=== PATIENT | female | born 1975 | race Caucasian/White ===

== ENCOUNTER 2017-12-08 15:35 | Emergency (ER) | payer OTHER ==
[2017-12-08 15:43] VITALS: BMI 29.0
[2017-12-08 15:47] VITALS: RESP 18
--- NOTE | 2017-12-08 16:05 | C.PDOC ---
History Of Present Illness 42 y/o female presents to ED with c/o throat pain, headache and body aches since yesterday. Patient reports throat pain is worse with swallowing and denies fever, chills, cough, nausea, vomiting, recent travel, sick contacts or any other complaints at this time. Time Seen by Provider: 12/08/17 15:49 Chief Complaint (Nursing): Headache History Per: Patient History/Exam Limitations: no limitations Onset/Duration Of Symptoms: Days Current Symptoms Are (Timing): Still Present Past Medical History Reviewed: Historical Data, Nursing Documentation, Vital Signs Vital Signs: Last Vital Signs Temp 97.9 F 12/08/17 17:18 Pulse 83 12/08/17 17:18 Resp 18 12/08/17 17:18 BP 139/88 12/08/17 17:18 Pulse Ox 98 12/08/17 18:07 - Medical History PMH: Gastritis Surgical History: No Surg Hx Family History: States: No Known Family Hx - Social History Hx Alcohol Use: No Hx Substance Use: No Review Of Systems Constitutional: Negative for: Fever, Chills ENT: Positive for: Throat Pain Cardiovascular: Negative for: Chest Pain Respiratory: Negative for: Cough, Shortness of Breath Gastrointestinal: Negative for: Nausea, Vomiting Skin: Negative for: Rash Physical Exam - Physical Exam Appears: Non-toxic, No Acute Distress Skin: Warm, Dry, No Rash Head: Atraumatic, Normacephalic Eye(s): bilateral: Normal Inspection Oral Mucosa: Moist Throat: Erythema, No Exudate Neck: Supple Cardiovascular: Rhythm Regular Respiratory: Normal Breath Sounds, No Rales, No Rhonchi, No Wheezing Gastrointestinal/Abdominal: Soft, No Tenderness, No Guarding, No Rebound Neurological/Psych: Oriented x3, Normal Speech, Normal Cognition ED Course And Treatment O2 Sat by Pulse Oximetry: 98 (RA) Pulse Ox Interpretation: Normal Medical Decision Making Medical Decision Making: pt well appearing on phone in nad. rapid strep neg. advise outpt fu. no hot pototo voice, no unilateral swelling Disposition - Disposition Referrals: [facility] [Outside] [facility] [Outside] Beau Calloway MD [Staff Provider] - Disposition: HOME/ ROUTINE Disposition Time: 06:00 Condition: STABLE Additional Instructions: please see your doctor/clinic. return to er with worsening symptoms or concerns. Prescriptions: Ibuprofen [Motrin Tab] 400 mg PO Q6 PRN #20 tab PRN Reason: Pain, Mild (1-3) Instructions: Viral Pharyngitis, Viral Syndrome (DC) Forms: [employer] (Swiss) - Clinical Impression Clinical Impression: Viral syndrome - Scribe Statement The provider has reviewed the documentation as recorded by the Mendelibnorris Mg All medical record entries made by the Mendelibnorris were at my direction and personally dictated by me. I have reviewed the chart and agree that the record accurately reflects my personal performance of the history, physical exam, medical decision making, and the department course for this patient. I have also personally directed, reviewed, and agree with the discharge instructions and disposition.
[2017-12-08 17:19] VITALS: BP 139/88; PULSE 83; TEMP 97.9
[2017-12-08 18:07] VITALS: O2SAT 98
== END 2017-12-08 17:19 | disposition home or self-care (01) ==
LOC: C.ER 15:35
DX: B34.9 Viral infection, unspecified (principal)
CPT/HCPCS: 87070; 87430; 99283; J8540

== ENCOUNTER 2018-04-22 10:23 | Emergency (ER) | payer OTHER ==
[2018-04-22 10:23] VITALS: BMI 29.0
[2018-04-22 10:35] VITALS: PULSE 74; TEMP 98.4
[2018-04-22] MEDS ORDERED: Sodium Chloride 0.9% 1,000 ML IV ONE (10:54)
[2018-04-22 11:18] LABS: BASO % 0.8 % (0.0-2.0); EOS # 0.2 K/uL (0.0-0.7); EOS % 2.5 % (0.0-4.0); HEMOGLOBIN 12.6 g/dL (11.0-16.0); LYMPH # 1.8 K/uL (1.0-4.3); MEAN CELL VOLUME 82.5 fL (81.0-99.0); MEAN CORPUSCULAR HEMOGLOBIN 28.5 pg (27.0-31.0); MEAN CORPUSCULAR HGB CONC 34.5 g/dL (33.0-37.0); MEAN PLATELET VOLUME 8.1 fL (7.2-11.7); MONO # 0.3 K/uL (0.0-0.8); MONO % 5.5 % (0.0-10.0); NEUT # 3.8 K/uL (1.8-7.0); NEUT % 62.2 % (50.0-75.0); RBC 4.44 Mil/uL (3.80-5.20); RED CELL DISTRIBUTION WIDTH 12.6 % (11.5-14.5); WHITE BLOOD COUNT 6.1 K/uL (4.8-10.8)
--- NOTE | 2018-04-22 11:21 | C.PDOC ---
History Of Present Illness 42 y/o female presents complaining of 2 week history of abdominal pain, localized to upper abdomen. Patient was seen by PMD and given PPI without relief. Admits to feeling nauseous, with no vomiting. Otherwise patient denies any fever, chills, diarrhea, or urinary symptoms. Time Seen by Provider: 04/22/18 10:41 Chief Complaint (Nursing): Abdominal Pain History Per: Patient History/Exam Limitations: no limitations Onset/Duration Of Symptoms: Days Current Symptoms Are (Timing): Still Present Associated Symptoms: Nausea Past Medical History Reviewed: Historical Data, Nursing Documentation, Vital Signs Vital Signs: Last Vital Signs Temp 98.4 F 04/22/18 10:32 Pulse 74 04/22/18 10:32 Resp 16 04/22/18 10:32 BP 122/80 04/22/18 10:32 Pulse Ox 99 04/22/18 10:32 - Medical History PMH: Gastritis Surgical History: Other Surgeries: Hysterectomy Family History: States: Unknown Family Hx - Social History Hx Alcohol Use: No Hx Substance Use: No - Immunization History Hx Tetanus Toxoid Vaccination: No Hx Influenza Vaccination: No Hx Pneumococcal Vaccination: No Review Of Systems Constitutional: Negative for: Fever, Chills Gastrointestinal: Positive for: Nausea, Abdominal Pain (upper). Negative for: Vomiting, Diarrhea, Hematochezia Genitourinary: Negative for: Dysuria, Frequency, Vaginal Discharge, Vaginal Bleeding Physical Exam - Physical Exam Appears: Non-toxic, No Acute Distress Skin: Normal Color, Warm, Dry Head: Atraumatic, Normacephalic Eye(s): bilateral: Normal Inspection Neck: Normal ROM Chest: Symmetrical Cardiovascular: Rhythm Regular, No Murmur Respiratory: Normal Breath Sounds, No Accessory Muscle Use Gastrointestinal/Abdominal: Soft, Tenderness (tenderness to upper abdomen, pro nounced at RUQ), No Guarding, No Rebound Extremity: Bilateral: Atraumatic, Normal Color And Temperature, Normal ROM Neurological/Psych: Oriented x3, Normal Speech ED Course And Treatment - Laboratory Results Result Diagrams: 04/22/18 11:09 04/22/18 11:09 Lab Interpretation: Normal Urine POC: Negative O2 Sat by Pulse Oximetry: 99 (RA) Pulse Ox Interpretation: Normal - CT Scan/US No standard instances Other Rad Studies (CT/US): Read By Radiologist, Radiology Report Reviewed CT/US Interpretation: FINDINGS: LIVER: Measures 15.1 cm in sagittal dimension and appears within normal limits of shape and echotexture. No focal hepatic mass identified. The main portal vein appears patent with normal directional flow. No intrahepatic bile duct dilatation. GALLBLADDER: No gallstones. No gallbladder wall thickening. Negative sonographic Rivera's sign as assessed by the executive candidate developer. COMMON BILE DUCT: Measures 3 mm. PANCREAS: Not well visualized. RIGHT KIDNEY: Measures 9.0 x 4.1 x 4.7cm. No obstructing calculus or hydronephrosis identified. LEFT KIDNEY: Measures 9.0 x 4.9 x 4.5cm. No obstructing calculus or hydronephrosis identified. SPLEEN: Measures approximately 10.1 cm. AORTA: Limited views appear unremarkable. IVC: Limited views appear unremarkable. OTHER FINDINGS: None. IMPRESSION: Unremarkable abdominal sonogram with findings as above. Progress Note: Treated with IVF NSS. On re-evaluation abdomen soft Reassessment Condition: Improved Medical Decision Making Medical Decision Making: Plan: --Labs --Abdominal US --IV fluids --Toradol 30 mg IVP Disposition Counseled Patient/Family Regarding: Studies Performed, Diagnosis, Need For Followup, Rx Given - Disposition Referrals: [facility] [Outside] [facility] [Outside] Disposition: HOME/ ROUTINE Disposition Time: 14:30 Condition: STABLE Additional Instructions: Follow up with your PMD for further evaluation Return to ED if any increase symptoms Prescriptions: Famotidine [Pepcid AC] 10 mg PO BID #20 tablet Instructions: Acute Abdomen (Belly Pain) Forms: [facility] (Canadian), Work Excuse Print Language: K[place] - POA Present On Arrival: None - Clinical Impression Clinical Impression: Abdominal pain, Gastritis - 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 - Scribe Statement The provider has reviewed the documentation as recorded by the Ilan Jung All medical record entries made by the Mendelibe were at my direction and personally dictated by me. I have reviewed the chart and agree that the record accurately reflects my personal performance of the history, physical exam, medical decision making, and the department course for this patient. I have also personally directed, reviewed, and agree with the discharge instructions and disposition.
[2018-04-22 11:22] LABS: HCG,QUALITATIVE URINE NEGATIVE (NEGATIVE)
[2018-04-22 11:24] LABS: SQUAMOUS EPITHIAL 5 /hpf (0-5); URINE BILIRUBIN NEGATIVE (NEGATIVE); URINE BLOOD NEGATIVE (NEGATIVE); URINE CLARITY Clear (Clear); URINE COLOR Yellow (YELLOW); URINE GLUCOSE (UA) NORMAL (Normal); URINE LEUKOCYTE ESTERASE NEG Leu/uL (Negative); URINE PROTEIN NEGATIVE (NEGATIVE); URINE UROBILINOGEN NORMAL mg/dL (0.2-1.0)
[2018-04-22] MEDS ORDERED: Sodium Chloride 0.9% 1,000 ML ONE (11:30)
[2018-04-22 12:01] LABS: ALB/GLOB RATIO 1.3 (1.0-2.1); ALBUMIN 3.9 g/dL (3.5-5.0); ALT/SGPT 28 U/L (9-52); AST/SGOT 27 U/L (14-36); BLOOD UREA NITROGEN 13 mg/dL (7-17); CALCIUM 8.8 mg/dl (8.6-10.4); GFR NON-AFRICAN AMERICAN > 60; LIPASE 90 U/L (23-300)
--- NOTE | 2018-04-22 14:00 | US ---
HISTORY: Pain COMPARISON: None available. TECHNIQUE: Sonographic evaluation of the abdomen. FINDINGS: LIVER: Measures 15.1 cm in sagittal dimension and appears within normal limits of shape and echotexture. No focal hepatic mass identified. The main portal vein appears patent with normal directional flow. No intrahepatic bile duct dilatation. GALLBLADDER: No gallstones. No gallbladder wall thickening. Negative sonographic Rivera's sign as assessed by the armature bander. COMMON BILE DUCT: Measures 3 mm. PANCREAS: Not well visualized. RIGHT KIDNEY: Measures 9.0 x 4.1 x 4.7cm. No obstructing calculus or hydronephrosis identified. LEFT KIDNEY: Measures 9.0 x 4.9 x 4.5cm. No obstructing calculus or hydronephrosis identified. SPLEEN: Measures approximately 10.1 cm. AORTA: Limited views appear unremarkable. IVC: Limited views appear unremarkable. OTHER FINDINGS: None. IMPRESSION: Unremarkable abdominal sonogram with findings as above.
[2018-04-22 14:21] VITALS: BP 151/84; RESP 18
[2018-04-22 14:24] VITALS: O2SAT 99
== END 2018-04-22 15:17 | disposition home or self-care (01) ==
LOC: C.ER 10:23
DX: K29.70 Gastritis, unspecified, without bleeding (principal); R10.11 Right upper quadrant pain
CPT/HCPCS: 76700; 80053; 81001; 83690; 84703; 85025; 87086; 96361; 96374; 99284; J1885; J7030

== ENCOUNTER 2018-05-25 12:21 | Emergency (ER) | payer OTHER ==
[2018-05-25 12:39] VITALS: TEMP 97.4; BMI 27.8
[2018-05-25] MEDS ORDERED: Sodium Chloride 0.9% 1,000 ML IV STA (13:42)
[2018-05-25] MEDS ORDERED: Sodium Chloride 0.9% 1,000 ML IV ONE (13:42)
[2018-05-25 13:58] LABS: HCG,QUALITATIVE URINE NEGATIVE (NEGATIVE)
[2018-05-25 14:00] LABS: SQUAMOUS EPITHIAL 15 /hpf (0-5); URINE BACTERIA FEW (<OCC); URINE BILIRUBIN NEGATIVE (NEGATIVE); URINE BLOOD NEGATIVE (NEGATIVE); URINE CLARITY Hazy (Clear); URINE COLOR Yellow (YELLOW); URINE GLUCOSE (UA) NORMAL (Normal); URINE LEUKOCYTE ESTERASE NEG Leu/uL (Negative); URINE PROTEIN NEGATIVE (NEGATIVE); URINE UROBILINOGEN NORMAL mg/dL (0.2-1.0)
[2018-05-25] MEDS ORDERED: Sodium Chloride 0.9% 2,000 ML ONE (14:04)
[2018-05-25 14:15] LABS: BASO % 0.4 % (0.0-2.0); EOS # 0.2 K/uL (0.0-0.7); EOS % 2.8 % (0.0-4.0); HEMOGLOBIN 13.6 g/dL (11.0-16.0); LYMPH # 2.3 K/uL (1.0-4.3); LYMPH % 26.6 % (20.0-40.0); MEAN CELL VOLUME 83.8 fL (81.0-99.0); MEAN CORPUSCULAR HEMOGLOBIN 28.4 pg (27.0-31.0); MEAN PLATELET VOLUME 8.1 fL (7.2-11.7); MONO # 0.4 K/uL (0.0-0.8); NEUT # 5.6 K/uL (1.8-7.0); NEUT % 65.2 % (50.0-75.0); RBC 4.77 Mil/uL (3.80-5.20); RED CELL DISTRIBUTION WIDTH 12.8 % (11.5-14.5); WHITE BLOOD COUNT 8.6 K/uL (4.8-10.8)
--- NOTE | 2018-05-25 14:21 | C.PDOC ---
History Of Present Illness 42 y/o female comes complaining of a sudden sharp back pain that is 8/10 and radiating to left side of abdomen since earlier today that worsens with movement. Patient states she was just at work standing when the pain started. Patient has not taken any pain medications. Patient also states the pain radiates to groin area. Patient reports her last meal was at 8am this morning with cheese and sweet potato, but no new food intake. Patient denies fever. Chief Complaint (Nursing): Abdominal Pain History Per: Patient History/Exam Limitations: no limitations Onset/Duration Of Symptoms: Days Current Symptoms Are (Timing): Still Present Past Medical History Reviewed: Historical Data, Nursing Documentation, Vital Signs Vital Signs: Last Vital Signs Temp 97.4 F L 05/25/18 12:35 Pulse 82 05/25/18 12:35 Resp 18 05/25/18 12:35 BP 160/97 H 05/25/18 12:35 Pulse Ox 100 05/25/18 12:35 - Medical History PMH: Gastritis Surgical History: Other Surgeries: Hysterectomy Family History: States: No Known Family Hx - Social History Hx Alcohol Use: No Hx Substance Use: No - Immunization History Hx Tetanus Toxoid Vaccination: No Hx Influenza Vaccination: No Hx Pneumococcal Vaccination: No Review Of Systems Except As Marked, All Systems Reviewed And Found Negative. Constitutional: Positive for: Chills. Negative for: Fever Gastrointestinal: Positive for: Nausea, Diarrhea (nonbloody). Negative for: Vomiting Genitourinary: Negative for: Dysuria Physical Exam - Physical Exam Appears: Non-toxic, No Acute Distress Skin: Warm, Dry Head: Atraumatic, Normacephalic Eye(s): bilateral: Normal Inspection Oral Mucosa: Moist Neck: Supple Cardiovascular: Rhythm Regular, No Murmur Respiratory: Normal Breath Sounds, No Rales, No Rhonchi, No Wheezing Gastrointestinal/Abdominal: Tenderness (in epigastric region and LLQ), Other (Tenderness in entire L flank area; negative diamond's or mcburney's) Extremity: Bilateral: Atraumatic, Normal Color And Temperature, Normal ROM Neurological/Psych: Oriented x3, Normal Speech ED Course And Treatment - Laboratory Results Result Diagrams: 05/25/18 14:02 05/25/18 14:02 Lab Results: Urine Color Yellow (YELLOW) 05/25/18 13:20 Urine Clarity Hazy (Clear) 05/25/18 13:20 Urine pH 6.0 (5.0-8.0) 05/25/18 13:20 Ur Specific Matthews 1.004 (1.003-1.030) 05/25/18 13:20 Urine Protein Negative mg/dL (NEGATIVE) 05/25/18 13:20 Urine Glucose (UA) Normal mg/dL (Normal) 05/25/18 13:20 Urine Ketones Negative mg/dL (NEGATIVE) 05/25/18 13:20 Urine Blood Negative (NEGATIVE) 05/25/18 13:20 Urine Nitrate Negative (NEGATIVE) 05/25/18 13:20 Urine Bilirubin Negative (NEGATIVE) 05/25/18 13:20 Urine Urobilinogen Normal mg/dL (0.2-1.0) 05/25/18 13:20 Ur Leukocyte Esterase Neg Renetta/uL (Negative) 05/25/18 13:20 Urine WBC (Auto) 2 /hpf (0-5) 05/25/18 13:20 Urine RBC (Auto) 1 /hpf (0-3) 05/25/18 13:20 Ur Squamous Epith Cells 15 /hpf (0-5) H 05/25/18 13:20 Urine Bacteria Few (<OCC) H 05/25/18 13:20 Urine HCG, Qual Negative (NEGATIVE) 05/25/18 13:20 Urine HCG, Qual Negative (NEGATIVE) 05/25/18 13:20 O2 Sat by Pulse Oximetry: 100 (RA) Pulse Ox Interpretation: Normal - CT Scan/US Abd/Pel CT Other Rad Studies (CT/US): Read By Radiologist, Radiology Report Reviewed CT/US Interpretation: FINDINGS: LOWER THORAX: The heart size is within range of normal. No significant pericardial effusion. There is a tiny hiatal hernia. Lung bases clear without focal consolidation. No effusion or basilar pneumothorax. LIVER: The liver exhibits normal size measuring approximately 16 cm in CC dimension. No obvious hepatic mass collection or calcification.. GALLBLADDER AND BILE DUCTS: Gallbladder is physiologically distended. No evidence of intraluminal gallbladder calculi.. PANCREAS: Visualized portions the pancreas appear grossly unremarkable without mass collection calcification or significant ductal dilatation. SPLEEN: Unremarkable. ADRENALS: There are no adrenal lesions.. KIDNEYS AND URETERS: Kidneys demonstrate relatively symmetric size.. No evidence of nephrolithiasis. No masses or collections identified. VASCULATURE: Unremarkable. No aortic aneurysm. No aortic atherosclerotic calcification or mural plaque present. BOWEL: Evaluation of the bowel is somewhat limited due to the lack of oral contrast material. The stomach is incompletely distended with thick-walled appearance. Visualized loops of small bowel exhibit relatively normal contour and caliber. No evidence of acute mechanical small bowel obstruction however note made of some fecalized content within several loops of distal small bowel. Moderate amount of stool seen throughout the large bowel possibly representing mild constipation. No the the the definitive evidence of mural wall thickening. APPENDIX: Normal- appearing appendix with no periappendiceal inflammatory changes.. PERITONEUM: Unremarkable. No free fluid. No free air. Small fat containing umbilical hernia. LYMPH NODES: Unremarkable. No enlarged lymph nodes. BLADDER: The urinary bladder is physiologically distended. No evidence of intraluminal urinary bladder calculi.. REPRODUCTIVE: As per referring clinician, the patient is status post hysterectomy however there is a somewhat lobulated appearance of what probably represents a prominent cervical stump and adjacent ovary. Clinical correlation recommended. Follow-up of pelvic ultrasound could confirm. BONES: No acute fracture.. 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 OTHER FINDINGS: None. IMPRESSION: No evidence of acute intra abdominal pathology. Findings suggest very mild constipation. No evidence of acute appe ndicitis. As per referring clinician, the patient is status post hysterectomy however there is a somewhat lobulated appearance of what probably represents a prominent cervical stump and adjacent ovary. Clinical correlation recommended. Follow-up of pelvic ultrasound could confirm. Medical Decision Making Medical Decision Making: Plan: --Abd/Pel CT --Bloodwork --UA --Pepcid 20 mg IVP --IV fluids --Toradol 30 mg IVP --Zofran 4 mg IVP patient resting comfortably, states improvement, will discharge home to follow up with pmd within 2 days Disposition Counseled Patient/Family Regarding: Studies Performed, Diagnosis, Need For Followup, Rx Given - Disposition Referrals: [facility] at [facility] [Outside] Disposition: HOME/ ROUTINE Disposition Time: 16:43 Condition: STABLE Additional Instructions: follow up with medical clinic within 2 days call to make an appointment take medications as prescribed return to ER if symptoms worsens or progress take cat scan report with you to your follow up. Prescriptions: Naproxen [Naprosyn] 500 mg PO BID PRN #16 tab PRN Reason: Pain, Moderate (4-7) Sulfamethoxazole/Trimethoprim [Bactrim DS 800 mg-160 mg] 1 tab PO BID #10 tab RX: traMADol [Ultram] 50 mg PO TID PRN #12 tab PRN Reason: Pain, Moderate (4-7) Instructions: Flank Pain, Acute Abdomen (Belly Pain), Adult (DC), Dysuria, Adult (DC) Forms: [facility] Eritrean, [facility] (Eritrean), Work Excuse - Clinical Impression Clinical Impression: Abdominal pain, Flank pain, Dysuria - Scribe Statement The provider has reviewed the documentation as recorded by the Ilan Porter Provider Attestation: All medical record entries made by the Ilan were at my direction and personally dictated by me. I have reviewed the chart and agree that the record accurately reflects my personal performance of the history, physical exam, medical decision making, and the department course for this patient. I have also personally directed, reviewed, and agree with the discharge instructions and disposition.
[2018-05-25 14:33] LABS: ALB/GLOB RATIO 1.5 (1.0-2.1); ALBUMIN 4.5 g/dL (3.5-5.0); ALT/SGPT 28 U/L (9-52); AST/SGOT 28 U/L (14-36); BLOOD UREA NITROGEN 12 mg/dL (7-17); CALCIUM 9.4 mg/dl (8.6-10.4); GFR NON-AFRICAN AMERICAN > 60; LIPASE 88 U/L (23-300)
[2018-05-25] MEDS ORDERED: Lidocaine 80 MG in Sodium Chloride 0.9% 100 ML IV STA ×2 (15:34→15:37)
--- NOTE | 2018-05-25 16:13 | CT ---
Date of service: 05/25/2018 PROCEDURE: CT Abdomen and Pelvis without intravenous contrast HISTORY: Abdominal pain. COMPARISON: Comparison made with prior abdominal ultrasound 04/22/2018 TECHNIQUE: Contiguous helical/transaxial sections of the abdomen pelvis performed without oral or intravenous contrast material. Additional 2D sagittal and coronal reformats generated. Radiation dose: Total exam DLP = 555.31 mGy-cm. This CT exam was performed using one or more of the following dose reduction techniques: Automated exposure control, adjustment of the mA and/or kV according to patient size, and/or use of iterative reconstruction technique. FINDINGS: LOWER THORAX: The heart size is within range of normal. No significant pericardial effusion. There is a tiny hiatal hernia. Lung bases clear without focal consolidation. No effusion or basilar pneumothorax. LIVER: The liver exhibits normal size measuring approximately 16 cm in CC dimension. No obvious hepatic mass collection or calcification.. GALLBLADDER AND BILE DUCTS: Gallbladder is physiologically distended. No evidence of intraluminal gallbladder calculi.. PANCREAS: Visualized portions the pancreas appear grossly unremarkable without mass collection calcification or significant ductal dilatation. SPLEEN: Unremarkable. ADRENALS: There are no adrenal lesions.. KIDNEYS AND URETERS: Kidneys demonstrate relatively symmetric size.. No evidence of nephrolithiasis. No masses or collections identified. VASCULATURE: Unremarkable. No aortic aneurysm. No aortic atherosclerotic calcification or mural plaque present. BOWEL: Evaluation of the bowel is somewhat limited due to the lack of oral contrast material. The stomach is incompletely distended with thick-walled appearance. Visualized loops of small bowel exhibit relatively normal contour and caliber. No evidence of acute mechanical small bowel obstruction however note made of some fecalized content within several loops of distal small bowel. Moderate amount of stool seen throughout the large bowel possibly representing mild constipation. No the the the definitive evidence of mural wall thickening. APPENDIX: Normal-appearing appendix with no periappendiceal inflammatory changes.. PERITONEUM: Unremarkable. No free fluid. No free air. Small fat containing umbilical hernia. LYMPH NODES: Unremarkable. No enlarged lymph nodes. BLADDER: The urinary bladder is physiologically distended. No evidence of intraluminal urinary bladder calculi.. REPRODUCTIVE: As per referring clinician, the patient is status post hysterectomy however there is a somewhat lobulated appearance of what probably represents a prominent cervical stump and adjacent ovary. Clinical correlation recommended. Follow-up of pelvic ultrasound could confirm. BONES: No acute fracture.. 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 OTHER FINDINGS: None. IMPRESSION: No evidence of acute intra abdominal pathology. Findings suggest very mild constipation. No evidence of acute appendicitis. As per referring clinician, the patient is status post hysterectomy however there is a somewhat lobulated appearance of what probably represents a prominent cervical stump and adjacent ovary. Clinical correlation recommended. Follow-up of pelvic ultrasound could confirm.
[2018-05-25 16:25] VITALS: O2SAT 100
[2018-05-25 16:53] VITALS: BP 158/91; PULSE 81; RESP 15
== END 2018-05-25 17:09 | disposition home or self-care (01) ==
LOC: C.ER 12:21
DX: R10.32 Left lower quadrant pain (principal); R30.0 Dysuria
CPT/HCPCS: 74176; 80053; 81001; 83690; 84703; 85025; 96361; 96374; 96375; 99284; J1885; J2001; J2405; J7030